=== PATIENT | male | born 2000 ===

== ENCOUNTER 2020-05-29 20:06 | Emergency (ER) | payer OTHER ==
[~2020-05-29] VITALS: Ht 177.8 cm; Wt 79.4 kg
[2020-05-29] MEDS ORDERED: ZITHROMAX TRI-500 MG PO (22:19)
== END 2020-05-29 22:27 | disposition home or self-care (01) ==
LOC: EMR PED 20:06
DX: N34.2 Other urethritis (principal); N48.89 Other specified disorders of penis